=== PATIENT | female | born 1995 | race Caucasian/White ===

== ENCOUNTER 2024-07-19 15:53 | Emergency (ER) | payer OTHER, SELFPAY ==
[2024-07-19 15:57] VITALS: BP 129/98; PULSE 74; RESP 16; TEMP 36.7; O2SAT 99; BMI 21.2
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
--- NOTE | 2024-07-19 19:30 | CM.ED ---
Social Work Met with patient in room to update to recommendation for disposition: inpatient treatment. Updated nursing to decision to admit. Explained concern for patient's mood and thought that evaluation by a psychiatrist for medication would be helpful. Broached also, concern about safety and referenced whether there was a gun removed from patient's home in the last couple of weeks due family concern about patient's mood. Patient became upset, made comments that the gun was removed only to help the parents feel better and that I drove it over to the parents. Patient asked what other options there were, to which this health underwriter reported inpatient was the only option at this point. Patient started to cry, curled self into a tight ball (like a position but laying on back), closed eyes and overall became tense. Patient made comments about being betrayed by her mother, and that this health underwriter was the person ruining patient's relationship with her mother. Patient also opened eyes in a piercing way and stated you are ruining my life. Commented that you wait and will get out. This health underwriter explained that will need to get labs now and nursing would be in. Patient kept commenting that never felt this way before this health underwriter informed patient of decision to hospitalize. When this health underwriter asked what patient meant by this patient stated I don't want to talk to you. When this health underwriter leaving the room, overheard patient on the phone, yelling about feeling like going crazy. Plan: Inpatient mental health admission -RICHIE Powers
[2024-07-19] MEDS: LORazepam 1 MG Tablet PO (19:41)
--- NOTE | 2024-07-19 20:45 | ED.RN ---
Pt screaming at parents and staff. Pt had already been educated on it being a privilege to have a visitor at bedside and visitor can be removed. Pt continuing to yell at staff and scream. Pts parents escorted to waiting room and Dr. Banks.
[2024-07-19] MEDS: DiphenhydrAMINE 50 MG/ML Syringe IV (20:51)
[2024-07-19] MEDS: Ziprasidone IM 20 MG/ML VIAL IM (20:51)
[2024-07-19 22:02] LABS: Absolute Lymphocyte Count 1.53 X10^3/uL (0.83-4.51); Absolute Neutrophil Count 8.8 X10^3/uL (2.0-7.7); Basophil# 0.05 X10^3/uL; Basophil% 0.4 % (0-1); Eosinophil# 0.05 X10^3/uL; Eosinophils% 0.4 % (0-5); Hematocrit 37.8 % (37-47); Hemoglobin 12.8 g/dL (12.0-15.0); Lymphocyte # 1.53 X10^3/ul (0.83-4.51); Lymphocyte % 13.4 % (19-41); Mean Corp Hgb Conc 33.9 g/dL (32-36); Mean Corpuscular Hgb 30.7 pg (27.0-32.0); Mean Corpuscular Volume 90.6 fL (81-99); Monocyte# 0.95 X10^3/uL; Monocyte% 8.3 % (0-10); NRBC Flagged by Analyzer 0 % (0-5); Neutrophil # 8.81 X10^3/uL (2.7-7.7); Neutrophil % 77.2 % (47-70); Platelet Count 236 K/mm3 (150-450); RBC Distribution Width CV 12.7 % (11.6-14.6); Red Blood Count 4.17 M/mm3 (4.2-5.4); White Blood Count 11.4 K/mm3 (4.4-11.0)
--- NOTE | 2024-07-19 22:08 | ED.RN ---
Patient requested that mom be called. Patient upset that mom put her in fpc. She better be paying for this. I advised her that visitors are a privilege and that I would call her mom and have her come in if she could calm down and be cooperative. She said that she would. Mom Leia called. She was willing to come in. I advised her that if the patient could not be calm that I would ask her to leave the room. Leia understood and still willing to come in. Patient's mother and stepfather came in and mother went back to the room. Patient began to yell at her mom. Mom left the room. Patient told that this behavior was unacceptable. This nurse went to talk to parents. They voiced concerned about the patient's dog. When I addressed this with the patient that her parent's wanted to get her dog she said that she needed her phone to open her garage door. I told her that I would give her her phone only to open the garage door. Patient given phone and tried to text. Phone taken away. She began to yell at this nurse. I advised her that her phone was only to be used for the garage door. She said she would. Phone then handed back and she began to text. Phone taken away again. Patient stated, My dog can just then! I told her that she could either open the garage door for her parent's or I could call the [facility] [employer] to go get the dog and take it to the [employer] for its safety. Patient showed this nurse how to open the garage door. Parent's aware that garage door is open. Dr. Keith entered medication orders.
[2024-07-19 22:18] LABS: Anion Gap 12 (5-15); BUN 12 mg/dL (4-19); BUN/Creat Ratio 17.3 RATIO (10-20); Carbon Dioxide 23.3 mmol/L (21.0-32.0); Chloride 102 mmol/L (98-108); Creatinine, Serum 0.68 mg/dL (0.70-1.20); EST Glomerular Filtration Rate 119 (>60); Estimated Creatinine Clearance 116.57 ml/min (50-250); Glucose 104 mg/dL (70-99); Potassium 3.4 mmol/L (3.3-5.1); Sodium Level 138 mmol/L (133-145)
[2024-07-19 22:19] LABS: Alcohol, Blood (Medical)-Serum < 10.1 mg/dL (<=10.0)
[2024-07-19 22:22] LABS: Internal QC Validated? YES +Cl - CLEAR BKGD; Pregnancy, Serum, hCG Quali. NEGATIVE Negative
--- NOTE | 2024-07-19 22:49 | CM.ED ---
Social work Handoff to Crisis (ph: [phone]) with statement that nursing would fax labwork when it was available. Packet faxed (f: ). Liana Khoury, RADIATOR CLEANER, WAREHOUSE MATERIAL HANDLER
[2024-07-19 23:45] LABS: Amphetamine Urine NEGATIVE (<1000 ng/mL); Barbiturate Urine NEGATIVE (< 200 ng/mL); Benzodiazepine Urine NEGATIVE (< 200 ng/mL); Buprenorphine Urine NEGATIVE (< 200 ng/mL); Cocaine Urine NEGATIVE (< 300 ng/mL); Methadone Urine NEGATIVE (< 300 ng/mL); Opiates Urine NEGATIVE (< 300 ng/mL); PCP Urine NEGATIVE (< 25 ng/mL); THC Urine PREUMTIVE POSITIVE (< 50 ng/mL)
[2024-07-20 00:02] LABS: Fentanyl, Urine NEGATIVE; Oxycodone, Urine NEGATIVE (< 100 ng/mL)
--- NOTE | 2024-07-20 02:27 | ED.RN ---
CRISIS CALLED ME @ [phone] LETTING ME KNOW PT IS REFERRED TO [facility]. @ 0215 CRISIS CALLED ME AGAIN SAYING THAT PT IS ACCEPTED TO [facility]. ACCEPTING , DR[address] GREGORY, [address], [address] [phone] ETA FOR SHON IS [phone], 07/20/24
[2024-07-20 07:40] VITALS: PULSE 74; RESP 16; O2SAT 99
[2024-07-20 08:34] VITALS: PULSE 70; RESP 16; O2SAT 99
--- NOTE | 2024-07-20 08:58 | ED.RN ---
attempted to urinate. unable at this time. transfer squad present and loading patient up. pt calm and cooperative at this time.
== END 2024-07-20 08:59 ==
PROVIDERS: Emergency Provider Emergency Medicine; Visit Provider Emergency Medicine
DX: R45.851 Suicidal ideations (principal); F32.A Depression, unspecified; Z63.5 Disruption of family by separation and divorce; Z63.4 Disappearance and death of family member
CPT/HCPCS: 80048; 80307; 82077; 84703; 85025; 96372; 96374; 99285; J3486